=== PATIENT | female | born 1975 | race African-American/Black ===

== ENCOUNTER 2023-07-15 23:49 | Inpatient (IN) | payer MEDICAID ==
[~2023-07-15] VITALS: Ht 165.1 cm; Wt 77.8 kg
[2023-07-16 00:27] LABS: BASOPHILS % 0.3 % (0.0-2.0); HEMATOCRIT. 34.2 % (36.0-48.0); LYMPHOCYTES % 32.7 % (20.0-50.0); MEAN CORPUSCULAR HEMOGLOBIN 29.8 pg (28.0-32.0); MEAN CORPUSCULAR HGB CONC 32.3 g/dL (31.0-37.0); MEAN CORPUSCULAR VOLUME 92.4 fL (81.0-99.0); MONOCYTES % 5.1 % (2.0-8.0); NEUTROPHILS % 57.9 % (40.0-76.0); PLATELET 266 x1000/uL (130-400); RED CELL DISTRIBUTION WIDTH 14.7 % (11.6-14.6); WHITE BLOOD COUNT 5.3 x1000/uL (4.5-11.0)
[2023-07-16 00:36] LABS: CHLORIDE 106 mEq/L (98-107); POTASSIUM 3.5 mEq/L (3.5-5.1); SODIUM 139 mEq/L (136-145)
[2023-07-16 00:37] LABS: CARBON DIOXIDE 27 mEq/L (21-32)
[2023-07-16 00:38] LABS: PARTIAL THROMBOPLASTIN TIME 26.5 sec (23.4-31.0); PROTHROMBIN TIME 10.7 sec (9.6-11.0)
[2023-07-16 00:42] LABS: CREATININE 0.8 mg/dL (0.6-1.0); GLUCOSE 344 mg/dL (70-105); UREA NITROGEN BLOOD 12 mg/dL (9-23)
[2023-07-16] MEDS: ASPIRIN 325MG EC TABLET PO ONE (00:51)
[2023-07-16 01:26] LABS: ETHANOL BLOOD < 10 mg/dL (<10)
[2023-07-16 01:27] LABS: TROPONIN I HIGH SENSITIVITY 110 ng/L (3.0-34)
[2023-07-16] MEDS: MORPHINE SULFATE 4 MG/ML INJ (FOR IV/IM USE) IV NR (01:44)
[2023-07-16] MEDS: ONDANSETRON HCL 4MG/2ML INJ IV NR (01:44)
[2023-07-16 03:19] LABS: CLARITY URINE CLEAR (CLEAR); COLOR URINE YELLOW (YELLOW); GLUCOSE URINE 3+ (NEGATIVE); KETONES URINE NEGATIVE (NEGATIVE); LEUKOCYTE ESTERASE URINE NEGATIVE (NEGATIVE); NITRITE URINE NEGATIVE (NEGATIVE); OCCULT BLOOD URINE NEGATIVE (NEGATIVE); PH URINE 5.5 (4.5-8.0); PROTEIN URINE NEGATIVE (NEGATIVE); SPECIFIC GRAVITY URINE 1.019 (1.005-1.030); UROBILINOGEN URINE 0.2 E.U./dL (0.2-1.0)
[2023-07-16 03:35] LABS: *AMPHETAMINES SCREEN URINE NEGATIVE (NEGATIVE); *BARBITURATES SCREEN URINE NEGATIVE (NEGATIVE); *BENZODIAZEPINES SCREEN URINE NEGATIVE (NEGATIVE); *COCAINE SCREEN URINE NEGATIVE (NEGATIVE); CANNABINOID URINE SCREEN PRESUMPTIVE POSITIVE (NEGATIVE); ECSTASY MDMA SCREEN URINE NEGATIVE (NEGATIVE); METHADONE URINE SCREEN NEGATIVE (NEGATIVE); OPIATES URINE SCREEN PRESUMPTIVE POSITIVE (NEGATIVE); PHENCYCLIDINE URINE SCREEN NEGATIVE (NEGATIVE)
[2023-07-16] MEDS ORDERED: HEPARIN BOLUS PRN aPTT 30-44 IV ×2 (03:45)
[2023-07-16] MEDS ORDERED: HEPARIN BOLUS PRN aPTT <30 IV ×2 (03:45)
[2023-07-16] MEDS ORDERED: HEPARIN 60 UNITS/KG BOLUS IV SCH (03:45)
[2023-07-16] MEDS: HEPARIN 60 UNITS/KG BOLUS IV NR (04:15)
[2023-07-16] MEDS: HEPARIN 25,000 UNITS PREMIX 250 ML IV SCH (04:15)
[2023-07-16] MEDS ORDERED: GUAIFENESIN 200MG/10ML SUGAR FREE UDC PO PRN (04:45)
[2023-07-16] MEDS ORDERED: MAGNESIUM/ALUMINUM HYDROXIDE/SIMETHICONE 30ML UDC PO PRN (04:45)
[2023-07-16] MEDS ORDERED: DOCUSATE SODIUM 100MG CAPSULE PO PRN (04:45)
[2023-07-16] MEDS ORDERED: ONDANSETRON HCL 4MG/2ML INJ IV PRN (04:45)
[2023-07-16] MEDS ORDERED: CLONIDINE 0.1MG TABLET PO PRN (04:45)
[2023-07-16] MEDS ORDERED: DEXT 5%/0.45% NACL 1000ML 1,000 ML IV SCH (04:45)
[2023-07-16] MEDS ORDERED: ACETAMINOPHEN 325MG TABLET PO PRN (04:45)
[2023-07-16] MEDS ORDERED: DEXTROSE 50% WATER 50ML SYRINGE IV PRN (04:45)
[2023-07-16 05:10] LABS: HEMATOCRIT 29.8 % (36.0-48.0); HEMOGLOBIN 9.8 g/dL (12.0-16.0); MEAN CORPUSCULAR HGB CONC 32.7 g/dL (31.0-37.0); MEAN CORPUSCULAR VOLUME 91.7 fL (81.0-99.0); PLATELET 244 x1000/uL (130-400); RED BLOOD CELL COUNT 3.25 mill/uL (4.2-5.4); RED CELL DISTRIBUTION WIDTH 14.6 % (11.6-14.6); WHITE BLOOD COUNT 5.6 x1000/uL (4.5-11.0)
[2023-07-16 05:17] LABS: CARBON DIOXIDE 28 mEq/L (21-32); CHLORIDE 107 mEq/L (98-107); POTASSIUM 3.8 mEq/L (3.5-5.1); SODIUM 139 mEq/L (136-145)
[2023-07-16 05:18] LABS: CALCIUM 8.6 mg/dL (8.7-10.4)
[2023-07-16 05:22] LABS: CREATININE 0.7 mg/dL (0.6-1.0); GLUCOSE 349 mg/dL (70-105); IRON 33 ug/dL (50-170)
[2023-07-16 05:23] LABS: TRIGLYCERIDE 43 mg/dL (0-150); UREA NITROGEN BLOOD 11 mg/dL (9-23)
[2023-07-16 05:24] LABS: ALANINE AMINOTRANSFERASE 123 IU/L (10-49); ALBUMIN 3.2 g/dL (3.2-4.8); ASPARTATE AMINOTRANSFERASE 129 IU/L (<34); LDL CHOLESTEROL 106 mg/dL (5-100)
[2023-07-16 05:25] LABS: BILIRUBIN TOTAL 0.5 mg/dL (0.1-1.0); CHOLESTEROL 216 mg/dL (<200); CREATINE KINASE MB FRACTION 2.3 ng/mL (0.5-3.6); HDL CHOLESTEROL 87 mg/dL (>65); PHOSPHORUS 3.9 mg/dL (2.5-4.9); PROTEIN TOTAL 5.3 g/dL (6.0-8.3); TOTAL IRON BINDING CAPACITY 281 ug/dl (250-425)
[2023-07-16 05:27] LABS: T4 FREE 1.08 ng/dL (0.89-1.76); THYROID STIMULATING HORMONE 1.24 uIU/mL (0.55-4.78)
[2023-07-16] MEDS: SODIUM CHLORIDE 0.9% 1,000 ML IV SCH (05:33)
[2023-07-16 05:49] LABS: FERRITIN 122 ng/mL (10-291)
[2023-07-16 05:50] LABS: FOLIC ACID (FOLATE) SERUM > 20.00 ng/mL (>5.38); VITAMIN B12 SERUM 956 pg/mL (211-911)
[2023-07-16] MEDS: MAGNESIUM 1 G PREMIX 100 ML IV NR (06:56)
[2023-07-16] MEDS: ENOXAPARIN 80MG/0.8ML SYR SUBCUT SCH (08:10)
[2023-07-16] MEDS: PANTOPRAZOLE 40MG DR TABLET PO SCH (08:10)
[2023-07-16 08:37] LABS: BACTERIA URINE NONE SEEN; RBC URINE 0-2 /hpf (0-2); SQUAMOUS EPITHELIAL CELL URINE 1+ /lpf (RARE/1+); WBC URINE 0-2 /hpf (0-2); YEAST URINE NONE SEEN
[2023-07-16] MEDS: BLOOD SUGAR DIAGNOSTIC STRIP TEST SCH (09:00)
[2023-07-16] MEDS: INSULIN LISPRO 100 UNITS/ML SUBCUT SCH (10:14)
[2023-07-16] MEDS: ASPIRIN 81MG EC TABLET PO SCH (10:51)
[2023-07-16] MEDS: CLOPIDOGREL 75MG TABLET PO SCH (10:51)
[2023-07-16 12:00] VITALS: BP 123/71; PULSE 83; RESP 20; TEMP 98.3
[2023-07-16] MEDS: CARVEDILOL 3.125 MG TABLET PO SCH (12:18)
[2023-07-16] MEDS ORDERED: CARV3.1242 MT (12:35)
[2023-07-16] MEDS ORDERED: ATOR40TA70 MT (12:35)
[2023-07-16] MEDS ORDERED: LOSA25TA26 MT (12:35)
[2023-07-16] MEDS ORDERED: INSU100I28 SQ (12:35)
[2023-07-16] MEDS ORDERED: INSLIS SUBCUT (12:35)
[2023-07-16] MEDS ORDERED: ASPI-1406 MT (12:35)
[2023-07-16] MEDS ORDERED: FAMO20TA8 MT (12:35)
[2023-07-16] MEDS ORDERED: CLOP-31 MT (12:35)
[2023-07-16 16:00] VITALS: BP 110/59; PULSE 83; RESP 20; TEMP 98.4
[2023-07-16] MEDS: FUROSEMIDE 40MG/4ML VIAL IVP SCH (17:03)
[2023-07-16 20:00] VITALS: BP 126/69; PULSE 88; RESP 20; TEMP 97
[2023-07-16] MEDS: ATORVASTATIN CALCIUM 40MG TABLET PO SCH (20:09)
[2023-07-16] MEDS: NITROGLYCERIN 0.4MG TABLET SL SL PRN (20:09)
[2023-07-16] MEDS: IPRATROPIUM/ALBUTEROL 0.5-3(2.5)MG/3ML NEB HHN PRN (22:04)
[2023-07-16 22:05] VITALS: PULSE 87; RESP 18
[2023-07-17] VITALS (7 sets, daily range): BP systolic 114–143; BP diastolic 58–84; PULSE 84–96; RESP 18–20; TEMP 97.2–98.7; O2SAT 98
[2023-07-17] MEDS: ENOXAPARIN 80MG/0.8ML SYR SUBCUT SCH (21:30)
[2023-07-18] VITALS: BP 159/84; PULSE 83; RESP 18; TEMP 99.4
[2023-07-18 04:00] VITALS: BP 151/87; PULSE 80; RESP 18; TEMP 98.9
[2023-07-18 08:00] VITALS: BP 114/63; PULSE 88; RESP 17; TEMP 98.3
[2023-07-18] MEDS: FERROUS SULFATE 325MG TABLET PO SCH (09:41)
[2023-07-18] MEDS: FAMOTIDINE 20MG TABLET PO SCH (09:41)
[2023-07-18 12:00] VITALS: BP 121/71; PULSE 79; RESP 20; TEMP 98.7
[2023-07-18 16:00] VITALS: BP 118/79; PULSE 86; RESP 22; TEMP 97.4
[2023-07-18] MEDS: FUROSEMIDE 40MG/4ML VIAL IVP SCH (17:44)
[2023-07-18 18:35] LABS: CREATINE KINASE MB FRACTION 1.7 ng/mL (0.5-3.6)
[2023-07-18 20:00] VITALS: BP 111/63; PULSE 80; RESP 17; TEMP 97.9
[2023-07-19] VITALS: BP 111/61; PULSE 101; RESP 18; TEMP 97.7
[2023-07-19 04:00] VITALS: BP 125/59; PULSE 82; RESP 17; TEMP 97.7
[2023-07-19] MEDS: ACETAMINOPHEN 325MG TABLET PO PRN (05:09)
[2023-07-19 08:00] VITALS: BP 129/84; PULSE 84; RESP 18; TEMP 97.5
[2023-07-19] MEDS: INSULIN GLARGINE 100 UNITS/ML SUBCUT SCH (09:27)
[2023-07-19 12:00] VITALS: BP 132/62; PULSE 79; RESP 18; TEMP 97.1
[2023-07-19 16:00] VITALS: BP 111/61; PULSE 84; RESP 18; TEMP 97.1
[2023-07-19 20:00] VITALS: BP 110/69; PULSE 84; RESP 20; TEMP 97.5
[2023-07-20] VITALS: BP 100/58; PULSE 79; RESP 18; TEMP 97.2
[2023-07-20 04:00] VITALS: BP 125/68; PULSE 80; RESP 18; TEMP 98.3
[2023-07-20 08:00] VITALS: BP 130/70; PULSE 73; RESP 18; TEMP 98.8
[2023-07-20] MEDS ORDERED: IODIXANOL 320MG/ML 100 ML BOTTLE IV ONE (08:42)
[2023-07-20] MEDS ORDERED: LIDOCAINE HCL 1% 10 MG/ML 10ML VIAL ONE (08:42)
[2023-07-20] MEDS ORDERED: HEPARIN 1000 UNITS/ML 10ML ONE (08:42)
[2023-07-20] MEDS ORDERED: MIDAZOLAM HCL 2 MG/2 ML VIAL ONE (10:24)
[2023-07-20] MEDS ORDERED: FENTANYL CITRATE/PF 50MCG/ML 2ML VIAL ONE (10:24)
[2023-07-20 10:30] LABS: HCG SCREEN NEGATIVE
[2023-07-20] MEDS ORDERED: ASPIRIN 81MG TABLET ONE (10:59)
[2023-07-20] MEDS ORDERED: CLOPIDOGREL 75MG TABLET ONE (10:59)
[2023-07-20] MEDS ORDERED: MORPHINE SULFATE 2 MG/ML CPJ (NOT FOR IM USE) IV ONE (11:27)
[2023-07-20] MEDS ORDERED: ONDANSETRON HCL 4MG/2ML INJ ONE (11:31)
[2023-07-20] MEDS ORDERED: ATROPINE SULFATE 1MG/10ML SYR IV PRN (11:45)
[2023-07-20 12:03] VITALS: BP 158/97; PULSE 85; RESP 17; TEMP 98.4
[2023-07-20 16:00] VITALS: BP 143/91; PULSE 89; RESP 18; TEMP 98
[2023-07-20] MEDS: LOSARTAN 25 MG TABLET PO SCH (17:27)
[2023-07-20] MEDS: HYDROCODONE/ACETAMINOPHEN 5/325MG TABLET PO NR (22:01)
[2023-07-21] VITALS (56 sets, daily range): BP systolic 83–140; BP diastolic 52–92; PULSE 82–102; RESP 11–30; TEMP 97.8–98.8
[2023-07-21 01:50] LABS: POTASSIUM 2.9 mEq/L (3.5-5.1)
[2023-07-21 01:57] LABS: CREATINE KINASE MB FRACTION 19.2 ng/mL (0.5-3.6)
[2023-07-21 01:58] LABS: CREATINE KINASE 213 IU/L (34-145)
[2023-07-21 02:07] LABS: TROPONIN I HIGH SENSITIVITY 1759 ng/L (3.0-34)
[2023-07-21] MEDS: KCL 20MEQ/100ML PREMIX 100 ML IV SCH (02:53)
[2023-07-21 06:32] LABS: BASOPHILS % 0.4 % (0.0-2.0); EOSINOPHILS % 0.3 % (0.0-5.0); HEMATOCRIT. 34.6 % (36.0-48.0); HEMOGLOBIN. 11.8 g/dL (12.0-16.0); LYMPHOCYTES % 11.9 % (20.0-50.0); MEAN CORPUSCULAR HEMOGLOBIN 30.7 pg (28.0-32.0); MEAN CORPUSCULAR VOLUME 90.2 fL (81.0-99.0); MONOCYTES % 4.8 % (2.0-8.0); NEUTROPHILS % 82.6 % (40.0-76.0); PLATELET 272 x1000/uL (130-400); RED BLOOD CELL COUNT 3.84 mill/uL (4.2-5.4); RED CELL DISTRIBUTION WIDTH 14.1 % (11.6-14.6); WHITE BLOOD COUNT 6.6 x1000/uL (4.5-11.0)
[2023-07-21 08:19] LABS: CHLORIDE 100 mEq/L (98-107); POTASSIUM 4.1 mEq/L (3.5-5.1); SODIUM 136 mEq/L (136-145)
[2023-07-21 08:23] LABS: CALCIUM 9.9 mg/dL (8.7-10.4); CARBON DIOXIDE 26 mEq/L (21-32)
[2023-07-21 08:28] LABS: CREATINE KINASE MB FRACTION 30.9 ng/mL (0.5-3.6); CREATININE 0.7 mg/dL (0.6-1.0); GLUCOSE 272 mg/dL (70-105)
[2023-07-21 08:29] LABS: UREA NITROGEN BLOOD 14 mg/dL (9-23)
[2023-07-21 08:30] LABS: CREATINE KINASE 305 IU/L (34-145)
[2023-07-21 08:31] LABS: PHOSPHORUS 3.7 mg/dL (2.5-4.9)
[2023-07-21 08:48] LABS: TROPONIN I HIGH SENSITIVITY 3165 ng/L (3.0-34)
[2023-07-21 10:59] LABS: CHLORIDE 99 mEq/L (98-107); POTASSIUM 3.6 mEq/L (3.5-5.1); SODIUM 135 mEq/L (136-145)
[2023-07-21] MEDS: ONDANSETRON HCL 4MG/2ML INJ IV PRN (10:59)
[2023-07-21 11:00] LABS: CARBON DIOXIDE 27 mEq/L (21-32)
[2023-07-21 11:05] LABS: CREATININE 0.7 mg/dL (0.6-1.0); GLUCOSE 268 mg/dL (70-105); UREA NITROGEN BLOOD 10 mg/dL (9-23)
[2023-07-21 11:44] LABS: TROPONIN I HIGH SENSITIVITY 4854 ng/L (3.0-34)
[2023-07-21] MEDS: MAGNESIUM 1 G PREMIX 100 ML IV NR (13:10)
[2023-07-21 15:33] LABS: CREATINE KINASE MB FRACTION 24.7 ng/mL (0.5-3.6)
[2023-07-21] MEDS: SODIUM CHLORIDE 0.9% 500 ML IV NR (22:24)
[2023-07-21] MEDS ORDERED: PHENYLEPHRINE 50MG/250ML PMX 250 ML IV PRN (23:15)
[2023-07-21 23:45] LABS: CREATINE KINASE MB FRACTION 15.6 ng/mL (0.5-3.6)
[2023-07-22] VITALS (71 sets, daily range): BP systolic 88–129; BP diastolic 44–86; PULSE 84–99; RESP 8–32; TEMP 97.8–99
[2023-07-22 05:37] LABS: HEMATOCRIT 31.7 % (36.0-48.0); HEMOGLOBIN 10.3 g/dL (12.0-16.0); MEAN CORPUSCULAR HEMOGLOBIN 29.6 pg (28.0-32.0); MEAN CORPUSCULAR HGB CONC 32.6 g/dL (31.0-37.0); MEAN CORPUSCULAR VOLUME 90.8 fL (81.0-99.0); PLATELET 238 x1000/uL (130-400); RED BLOOD CELL COUNT 3.49 mill/uL (4.2-5.4); RED CELL DISTRIBUTION WIDTH 14.3 % (11.6-14.6); WHITE BLOOD COUNT 4.7 x1000/uL (4.5-11.0)
[2023-07-22 05:46] LABS: CHLORIDE 104 mEq/L (98-107); POTASSIUM 3.2 mEq/L (3.5-5.1); SODIUM 140 mEq/L (136-145)
[2023-07-22 05:47] LABS: CALCIUM 9.4 mg/dL (8.7-10.4); CARBON DIOXIDE 28 mEq/L (21-32)
[2023-07-22 05:52] LABS: CREATININE 0.7 mg/dL (0.6-1.0); GLUCOSE 190 mg/dL (70-105); UREA NITROGEN BLOOD 8 mg/dL (9-23)
[2023-07-22] MEDS: KCL 20MEQ/100ML PREMIX 100 ML IV NR (08:29)
[2023-07-22] MEDS: MAGNESIUM 2 G PREMIX 50 ML IV SCH (11:25)
[2023-07-22] MEDS: KCL 20MEQ/100ML PREMIX 100 ML IV SCH (12:58)
[2023-07-22 18:46] LABS: POTASSIUM 4.1 mEq/L (3.5-5.1)
[2023-07-23] VITALS (37 sets, daily range): BP systolic 89–135; BP diastolic 49–85; PULSE 79–95; RESP 0–29; TEMP 97.3–98.7
[2023-07-23 05:40] LABS: BASOPHILS % 0.3 % (0.0-2.0); EOSINOPHILS % 3.3 % (0.0-5.0); HEMATOCRIT. 31.9 % (36.0-48.0); HEMOGLOBIN. 10.4 g/dL (12.0-16.0); LYMPHOCYTES % 48.7 % (20.0-50.0); MEAN CORPUSCULAR HEMOGLOBIN 29.5 pg (28.0-32.0); MEAN CORPUSCULAR HGB CONC 32.5 g/dL (31.0-37.0); MEAN CORPUSCULAR VOLUME 90.7 fL (81.0-99.0); MEAN PLATELET VOLUME 8.3 fl (7.4-10.4); MONOCYTES % 10.7 % (2.0-8.0); PLATELET 241 x1000/uL (130-400); RED BLOOD CELL COUNT 3.52 mill/uL (4.2-5.4); RED CELL DISTRIBUTION WIDTH 13.9 % (11.6-14.6); WHITE BLOOD COUNT 4.5 x1000/uL (4.5-11.0)
[2023-07-23 05:48] LABS: CARBON DIOXIDE 30 mEq/L (21-32); CHLORIDE 103 mEq/L (98-107); POTASSIUM 3.8 mEq/L (3.5-5.1); SODIUM 138 mEq/L (136-145)
[2023-07-23 05:49] LABS: CALCIUM 8.7 mg/dL (8.7-10.4)
[2023-07-23 05:54] LABS: CREATININE 0.8 mg/dL (0.6-1.0); GLUCOSE 246 mg/dL (70-105); UREA NITROGEN BLOOD 11 mg/dL (9-23)
[2023-07-23] MEDS ORDERED: IODIXANOL 320 MG/ML 150ML BOTTLE IV ONE (07:49)
[2023-07-23] MEDS ORDERED: LIDOCAINE HCL 1% 20ML VIAL (Pyxis) INJ ONE (07:49)
[2023-07-23] MEDS ORDERED: MIDAZOLAM HCL 5 MG/5 ML VIAL ONE (07:49)
[2023-07-23] MEDS ORDERED: FENTANYL CITRATE/PF 50MCG/ML 2ML VIAL ONE (07:50)
[2023-07-23] MEDS ORDERED: HEPARIN 1000 UNITS/ML 10ML ONE ×2 (07:50→08:14)
[2023-07-23] MEDS: INSULIN LISPRO 100 UNITS/ML SUBCUT SCH (07:50)
[2023-07-23] MEDS ORDERED: ONDANSETRON HCL 4MG/2ML INJ ONE (08:33)
[2023-07-23] MEDS: MAGNESIUM 2 G PREMIX 50 ML IV NR (10:29)
[2023-07-23] MEDS: INSULIN GLARGINE 100 UNITS/ML SUBCUT SCH (10:34)
[2023-07-24] VITALS (10 sets, daily range): BP systolic 94–126; BP diastolic 57–90; PULSE 68–100; RESP 11–20; TEMP 97.8–98.3
[2023-07-24 06:37] LABS: CALCIUM 9.2 mg/dL (8.7-10.4); CARBON DIOXIDE 30 mEq/L (21-32); CHLORIDE 105 mEq/L (98-107); POTASSIUM 3.8 mEq/L (3.5-5.1); SODIUM 139 mEq/L (136-145)
[2023-07-24 06:42] LABS: CREATININE 0.6 mg/dL (0.6-1.0); GLUCOSE 177 mg/dL (70-105)
[2023-07-24 06:43] LABS: UREA NITROGEN BLOOD 10 mg/dL (9-23)
[2023-07-24 07:32] LABS: BASOPHILS % 0.5 % (0.0-2.0); EOSINOPHILS % 2.9 % (0.0-5.0); HEMATOCRIT. 32.8 % (36.0-48.0); HEMOGLOBIN. 10.7 g/dL (12.0-16.0); LYMPHOCYTES % 46.8 % (20.0-50.0); MEAN CORPUSCULAR HEMOGLOBIN 29.4 pg (28.0-32.0); MEAN CORPUSCULAR HGB CONC 32.7 g/dL (31.0-37.0); MEAN CORPUSCULAR VOLUME 89.9 fL (81.0-99.0); MEAN PLATELET VOLUME 8.2 fl (7.4-10.4); NEUTROPHILS % 38.8 % (40.0-76.0); PLATELET 296 x1000/uL (130-400); RED BLOOD CELL COUNT 3.65 mill/uL (4.2-5.4); RED CELL DISTRIBUTION WIDTH 14.1 % (11.6-14.6); WHITE BLOOD COUNT 3.6 x1000/uL (4.5-11.0)
[2023-07-24] MEDS: LORAZEPAM 0.5MG TABLET PO NR (14:00)
[2023-07-24] MEDS: ATORVASTATIN CALCIUM 40MG TABLET PO SCH (20:57)
[2023-07-25] VITALS: BP 91/59; PULSE 86; RESP 16; TEMP 98
[2023-07-25 04:00] VITALS: BP 104/45; PULSE 94; RESP 18; TEMP 98.3
[2023-07-25 06:41] LABS: CALCIUM 9.4 mg/dL (8.7-10.4); CARBON DIOXIDE 30 mEq/L (21-32); CHLORIDE 102 mEq/L (98-107); POTASSIUM 3.4 mEq/L (3.5-5.1); SODIUM 139 mEq/L (136-145)
[2023-07-25 06:46] LABS: GLUCOSE 89 mg/dL (70-105)
[2023-07-25 06:47] LABS: CREATININE 0.7 mg/dL (0.6-1.0); UREA NITROGEN BLOOD 12 mg/dL (9-23)
[2023-07-25 06:56] LABS: BASOPHILS % 0.6 % (0.0-2.0); EOSINOPHILS % 2.6 % (0.0-5.0); HEMATOCRIT. 33.1 % (36.0-48.0); HEMOGLOBIN. 10.9 g/dL (12.0-16.0); MEAN CORPUSCULAR HEMOGLOBIN 29.6 pg (28.0-32.0); MEAN CORPUSCULAR VOLUME 89.6 fL (81.0-99.0); MEAN PLATELET VOLUME 8.3 fl (7.4-10.4); MONOCYTES % 9.6 % (2.0-8.0); NEUTROPHILS % 38.2 % (40.0-76.0); PLATELET 326 x1000/uL (130-400); RED CELL DISTRIBUTION WIDTH 13.9 % (11.6-14.6); WHITE BLOOD COUNT 3.9 x1000/uL (4.5-11.0)
[2023-07-25 08:00] VITALS: BP 101/81; PULSE 82; RESP 17; TEMP 98.5
[2023-07-25] MEDS ORDERED: KCL 20MEQ/100ML PREMIX 100 ML IV NR (11:00)
[2023-07-25 12:00] VITALS: BP 103/73; PULSE 87; RESP 20; TEMP 98.3
[2023-07-25] MEDS: POTASSIUM CHLORIDE 20MEQ TABLET SR PO NR ×2 (14:07→16:31)
[2023-07-25] MEDS: MAGNESIUM 2 G PREMIX 50 ML IV NR (14:07)
[2023-07-25] MEDS ORDERED: CARV3.1242 PO (15:24)
[2023-07-25] MEDS ORDERED: FERR-63 PO (15:24)
[2023-07-25] MEDS ORDERED: LOSA25TA26 PO (15:24)
[2023-07-25] MEDS ORDERED: CLOP-31 PO (15:24)
[2023-07-25] MEDS ORDERED: FURO-152 PO (15:24)
[2023-07-25] MEDS ORDERED: LIP40 PO (15:24)
[2023-07-25] MEDS ORDERED: SULF1TAB48 PO (15:24)
[2023-07-25] MEDS ORDERED: ASPI-1406 PO (15:24)
[2023-07-25] MEDS ORDERED: POTA-202 PO (15:24)
[2023-07-25 16:00] VITALS: BP 112/71; PULSE 101; RESP 23; TEMP 98
[2023-07-25 16:32] VITALS: BP 102/65; PULSE 90; TEMP 98.2; O2SAT 100
[2023-07-25] MEDS ORDERED: VANCOMYCIN 1.5GM/250ML 250 ML IV NR (17:00)
[2023-07-25] MEDS ORDERED: METF-416 PO (21:35)
[2023-07-25] MEDS ORDERED: EMPA25TA PO (21:36)
[2023-07-25] MEDS ORDERED: INSU100I28 SQ (22:01)
[2023-07-25] MEDS ORDERED: INSU100I53 SQ (22:01)
[2023-07-25] MEDS ORDERED: BLOO-1482 MC (22:01)
[2023-07-25] MEDS ORDERED: METF-414 PO (22:01)
[2023-07-26] MEDS ORDERED: VANCOMYCIN 1GM/200ML PMX (BAXTER) IV SCH (06:00)
== END 2023-07-25 18:29 | disposition home or self-care (01) | DRG 174 ==
LOC: ER 07-16 00:06 → 7WST 07-16 04:11 → EDBEDREQ 07-16 04:14 → EDBEDREQTM 07-16 04:14 → 3WST 07-20 11:46 → CVICU 07-21 00:15 → 3WST 07-23 16:45
PROVIDERS: ADMIT Internal Medicine; ATTEND Internal Medicine
PROC: 4A023N7 Measurement of Cardiac Sampling and Pressure, Left Heart, Percutaneous Approach (ICD-10-PCS; principal; 2023-07-20)
PROC: B2111ZZ Fluoroscopy of Multiple Coronary Arteries using Low Osmolar Contrast (ICD-10-PCS; 2023-07-20)
PROC: B2151ZZ Fluoroscopy of Left Heart using Low Osmolar Contrast (ICD-10-PCS; 2023-07-20)
PROC: 027036Z Dilation of Coronary Artery, One Artery with Three Drug-eluting Intraluminal Devices, Percutaneous Approach (ICD-10-PCS; 2023-07-20)
PROC: 5A12012 Performance of Cardiac Output, Single, Manual (ICD-10-PCS; 2023-07-20)
PROC: B2111ZZ Fluoroscopy of Multiple Coronary Arteries using Low Osmolar Contrast (ICD-10-PCS; 2023-07-23)
DX: I21.4 Non-ST elevation (NSTEMI) myocardial infarction (principal); I63.541 Cerebral infarction due to unspecified occlusion or stenosis of right cerebellar artery; J96.01 Acute respiratory failure with hypoxia; I50.42 Chronic combined systolic (congestive) and diastolic (congestive) heart failure; G93.40 Encephalopathy, unspecified; I42.9 Cardiomyopathy, unspecified; I11.0 Hypertensive heart disease with heart failure; I95.9 Hypotension, unspecified; E11.65 Type 2 diabetes mellitus with hyperglycemia; D50.9 Iron deficiency anemia, unspecified; I49.01 Ventricular fibrillation; D64.9 Anemia, unspecified; E83.42 Hypomagnesemia; H53.9 Unspecified visual disturbance; M79.604 Pain in right leg; M79.605 Pain in left leg; L03.113 Cellulitis of right upper limb; E87.6 Hypokalemia; E78.5 Hyperlipidemia, unspecified; I25.10 Atherosclerotic heart disease of native coronary artery without angina pectoris; J45.909 Unspecified asthma, uncomplicated; Z79.4 Long term (current) use of insulin; Z95.5 Presence of coronary angioplasty implant and graft; Z79.82 Long term (current) use of aspirin; Z79.84 Long term (current) use of oral hypoglycemic drugs
CPT/HCPCS: 36415; 70551; 71045; 80048; 80053; 80061; 80305; 80320; 81003; 82550; 82553; 82607; 82728; 82746; 82962; 83036; 83540; 83550; 83735; 83880; 84100; 84132; 84145; 84439; 84443; 84484; 84703; 85025; 85027; 85347; 92928; 93005; 93306; 93308; 93454; 93458; 93880; 93922; 93970; 94640; 97162; 97166; 97530; 99285; C1725; C1769; C1874; C1887; C1893; J1644; J1650; J1815; J1940; J2250; J2270; J2405; J3010; J3370; J3475; J3480; J3490; Q9967; G0480